=== PATIENT | female | born 1985 | race Caucasian/White ===

== ENCOUNTER 2018-03-18 07:05 | Emergency (ER) | payer SELFPAY ==
[2018-03-18] MEDS: ONDANSETRON 4 MG INJ IV (08:00)
[2018-03-18] MEDS: SOD CHLORIDE 0.9% 1,000 ML IV (08:00)
[2018-03-18 08:03] LABS: ADD MAN DIFF? NO
[2018-03-18] MEDS: KETOROLAC 30 MG INJ IV (08:08)
[2018-03-18 08:10] LABS: WHITE BLOOD COUNT 7.2 10^3/ul (4.8-10.8)
[2018-03-18 08:10] LABS: BASOPHIL # 0.1 10^3/ul (0.0-0.1); BASOPHILS % 0.8 % (0.0-2.0); EOSINOPHILS # 0.1 10^3/ul (0.0-0.5); EOSINOPHILS % 1.7 % (0.0-7.0); HEMATOCRIT 40.8 % (37.0-47.0); HEMOGLOBIN 14.2 g/dl (12.0-16.0); LYMPHOCYTES # 1.4 10^3/ul (0.8-2.9); LYMPHOCYTES % 18.8 % (15.0-51.0); MEAN CORPUSCULAR HEMOGLOBIN 31.9 pg (29.0-33.0); MEAN CORPUSCULAR HGB CONC 34.8 g/dl (32.0-37.0); MEAN CORPUSCULAR VOLUME 91.7 fl (82.0-101.0); MEAN PLATELET VOLUME 10.9 fl (7.4-10.4); MONOCYTE # 0.8 10^3/ul (0.3-0.9); MONOCYTES % 10.7 % (0.0-11.0); NEUTROPHIL # 4.9 10^3/ul (1.6-7.5); NEUTROPHILS % 67.6 % (39.0-77.0); PLATELET COUNT 256 10^3/UL (140-415); RED BLOOD COUNT 4.45 10^6/ul (4.20-5.40); RED CELL DISTRIBUTION WIDTH 12.1 % (11.5-14.5)
[2018-03-18] MEDS: morphine 4 MG/ML VIAL IV (08:18)
[2018-03-18 08:24] LABS: ALANINE AMINOTRANSFERASE 78 IU/L (13-69); ALBUMIN 5.1 g/dl (3.3-4.9); ALBUMIN/GLOBULIN RATIO 1.64; ALKALINE PHOSPHATASE 59 IU/L (42-121); ANION GAP 15 (8-16); ASPARTATE AMINO TRANSFERASE 58 IU/L (15-46); BILIRUBIN,INDIRECT 0.8 mg/dl (0-1.1); BILIRUBIN,TOTAL 0.8 mg/dl (0.2-1.3); BLOOD UREA NITROGEN 11 mg/dl (7-20); CALCIUM 10.2 mg/dl (8.4-10.2); CARBON DIOXIDE 24 mmol/L (21-31); CHLORIDE 105 mmol/L (97-110); CREATININE 0.79 mg/dl (0.44-1.00); GLUCOSE 96 mg/dl (70-220); LIPASE 73 U/L (23-300); POTASSIUM 4.2 mmol/L (3.5-5.1); SODIUM 140 mmol/L (135-144); TOTAL PROTEIN 8.2 g/dl (6.1-8.1)
[2018-03-18 08:35] LABS: TROPONIN-I < 0.010 ng/ml (0.000-0.120)
[2018-03-18 08:47] LABS: ADD UMIC NO; UR ASCORBIC ACID NEGATIVE (NEGATIVE); UR BACTERIA FEW /HPF (NONE SEEN); UR BILIRUBIN (Dip) NEGATIVE (NEGATIVE); UR BLOOD (Dip) NEGATIVE (NEGATIVE); UR CLARITY SLIGHTLY CLOUDY (CLEAR); UR COLOR YELLOW (YELLOW); UR GLUCOSE (Dip) NEGATIVE (NEGATIVE); UR KETONES (Dip) 1+ mg/dL (NEGATIVE); UR LEUKOCYTE ESTERASE (Dip) NEGATIVE Leu/ul (NEGATIVE); UR NITRITE (Dip) NEGATIVE (NEGATIVE); UR RBC 0 /HPF (0-5); UR SPECIFIC GRAVITY (Dip) 1.005 (1.003-1.030); UR SQUAMOUS EPITHELIAL CELL FEW /HPF (FEW); UR TOTAL PROTEIN (Dip) NEGATIVE (NEGATIVE); UR UROBILINOGEN (Dip) NEGATIVE (NEGATIVE); UR WBC 3 /HPF (0-5)
== END 2018-03-18 11:27 | disposition home or self-care (01) ==
LOC: FTE 07:05
DX: M54.9 Dorsalgia, unspecified (principal); R20.2 Paresthesia of skin; R20.0 Anesthesia of skin; R06.02 Shortness of breath; G89.29 Other chronic pain; R10.84 Generalized abdominal pain; R42 Dizziness and giddiness; R11.0 Nausea; R10.31 Right lower quadrant pain; R10.10 Upper abdominal pain, unspecified
CPT/HCPCS: 71045; 74176; 80053; 81001; 81003; 81025; 83690; 84484; 85025; 93005; 96374; 96375; 99285-25

== ENCOUNTER 2018-05-22 04:03 | Emergency (ER) | payer SELFPAY ==
[2018-05-22 05:00] LABS: AMPHETAMINE/METHAMPHETAMINE Negative (NEGATIVE); BARBITURATES Negative (NEGATIVE); BENZODIAZEPINES Negative (NEGATIVE); CANNABINOIDS Negative (NEGATIVE); COCAINE Negative (NEGATIVE); OPIATES Negative (NEGATIVE)
[2018-05-22] MEDS ORDERED: DIPHENHYDRAMINE 50 MG INJ (06:08)
== END 2018-05-22 05:45 | disposition home or self-care (01) ==
LOC: E/R 04:03
DX: F10.10 Alcohol abuse, uncomplicated (principal); R53.83 Other fatigue
CPT/HCPCS: 80307; 93005; 99284-25